=== PATIENT | male | born 1990 | race African-American/Black ===

== ENCOUNTER 2016-06-26 19:48 | Emergency (ER) | payer MEDICAID, OTHER | END 2016-06-26 20:40 | disposition left against medical advice (07) | LOC: ER 19:48 | DX: S41.112A Laceration without foreign body of left upper arm, initial encounter (principal); X58.XXXA Exposure to other specified factors, initial encounter; Y93.89 Activity, other specified; Y99.8 Other external cause status; Y92.89 Other specified places as the place of occurrence of the external cause ==

== ENCOUNTER 2016-07-31 08:20 | Emergency (ER) | payer MEDICAID ==
[~2016-07-31] VITALS: Ht 165.1 cm; Wt 70.0 kg
[2016-07-31 10:14] VITALS: BP 132/61
[2016-07-31] MEDS ORDERED: SODIUM CHLORIDE 0.9% 1,000 ML IV ONE (11:12)
== END 2016-07-31 12:06 | disposition home or self-care (01) ==
LOC: ER 08:21
DX: Z02.89 Encounter for other administrative examinations (principal); F12.90 Cannabis use, unspecified, uncomplicated; F17.200 Nicotine dependence, unspecified, uncomplicated
CPT/HCPCS: 99283; J7030

== ENCOUNTER 2020-02-21 10:57 | Emergency (ER) | payer MEDICAID ==
[~2020-02-21] VITALS: Ht 167.6 cm; Wt 90.0 kg
[2020-02-21 11:12] VITALS: BP 150/77
[2020-02-21] MEDS ORDERED: AZITHROMYCIN 500 MG TABLET PO ONE (11:30)
[2020-02-21] MEDS ORDERED: CEFTRIAXONE SODIUM 250 MG/VIAL IM ONE (11:30)
[2020-02-24 04:07] LABS: NEISSERIA GONORRHOEAE NAA Negative (Negative)
== END 2020-02-21 13:11 | disposition home or self-care (01) ==
LOC: ER 10:57
DX: A64 Unspecified sexually transmitted disease (principal); F12.90 Cannabis use, unspecified, uncomplicated
CPT/HCPCS: 87491; 87591; 96372; 99283; J0696; Z7610

== ENCOUNTER 2020-11-22 13:37 | Emergency (ER) | payer MEDICAID ==
[2020-09-11 08:45] VITALS: BP 105/49
[~2020-11-22] VITALS: Ht 167.6 cm; Wt 86.0 kg
[~2020-11-22 13:37] MED LIST: CETI10TA10 MT; DOXY100C5 MT; MED4 MT
== END 2020-11-22 16:27 | disposition home or self-care (01) ==
LOC: ER 13:37
DX: R51.9 Headache, unspecified (principal); Z87.820 Personal history of traumatic brain injury; F15.90 Other stimulant use, unspecified, uncomplicated; F12.90 Cannabis use, unspecified, uncomplicated
CPT/HCPCS: 70260; 99283

== ENCOUNTER 2021-02-14 11:37 | Emergency (ER) | payer MEDICAID, OTHER ==
[~2021-02-14] VITALS: Ht 167.6 cm; Wt 87.7 kg
[2021-02-14 11:41] VITALS: BP 131/70
== END 2021-02-14 20:04 | disposition left against medical advice (07) ==
LOC: ER 11:37
DX: L29.8 Other pruritus (principal); F12.10 Cannabis abuse, uncomplicated; F15.10 Other stimulant abuse, uncomplicated; F19.10 Other psychoactive substance abuse, uncomplicated; Z79.899 Other long term (current) drug therapy
CPT/HCPCS: 99281